=== PATIENT | male | born 1980 | race Caucasian/White ===

== ENCOUNTER 2021-12-23 09:12 | Inpatient (IN) | payer OTHER ==
[~2021-12-23] VITALS: Ht 172.7 cm; Wt 82.0 kg
[2021-12-23 10:52] LABS: BASOPHILS % (AUTO) 0.5 % (0.0-2.0); EOSINOPHILS % (AUTO) 2.3 % (1.0-6.0); HEMATOCRIT 39.6 % (41-53); HEMOGLOBIN 12.5 g/dL (13.5-17.5); LYMPHOCYTES # (AUTO) 2.5 K/uL (1.0-4.8); LYMPHOCYTES % (AUTO) 27.8 % (22.0-44.0); MEAN CORPUSCULAR HEMOGLOBIN 25.4 pg (26.0-34.0); MEAN CORPUSCULAR HGB CONC 31.6 G/dL (31.0-37.0); MEAN CORPUSCULAR VOLUME 81 fL (80-100); MONOCYTES # (AUTO) 0.8 K/uL (0.1-1.0); NEUTROPHILS # (AUTO) 5.4 K/uL (1.8-7.7); NEUTROPHILS % (AUTO) 60.4 % (40.0-70.0); PLATELET COUNT (AUTO) 199 K/uL (150-450); RED BLOOD CELL COUNT(AUTO) 4.91 MIL/uL (4.50-5.90); RED CELL DISTRIBUTION WIDTH 14.8 % (11.5-14.5)
[2021-12-23 11:03] LABS: ANION GAP 8 mmol/L (8-16); CALCIUM, TOTAL 9.3 mg/dL (8.8-10.5); CARBON DIOXIDE 28 mmol/L (22-29); CHLORIDE 105 mmol/L (98-107); CREATININE 0.72 mg/dL (0.60-1.30); GLUCOSE,RANDOM 125 mg/dL (70-110); POTASSIUM 4.1 mmol/L (3.5-5.1); SODIUM SERUM 141 mmol/L (136-145); UREA NITROGEN, BLOOD 14 mg/dL (7-18)
[2021-12-23 11:05] LABS: GLOMERULAR FILTR. RATE CALC > 60 mL/min (>60)
[2021-12-23 11:07] LABS: ALANINE AMINOTRANSFERASE 17 U/L (12-78); ALKALINE PHOSPHATASE 109 U/L (46-116); ASPARTATE AMINOTRANSFERASE 12 U/L (15-37); BILIRUBIN,TOTAL 0.3 mg/dL (0.1-1.0); TOTAL PROTEIN, SERUM 6.9 g/dL (6.4-8.2)
[2021-12-23 11:25] LABS: COVID AG,FIA SOURCE NASAL SWAB
[2021-12-23 11:53] VITALS: BP 130/68
[2021-12-23 16:33] VITALS: BP 127/61
[2021-12-23 19:36] VITALS: BP 154/88
[2021-12-23] MEDS ORDERED: BISACODYL 10 MG RECTAL RECTAL SUPPOSITORY PR PRN (23:00)
[2021-12-23] MEDS ORDERED: ALBUTEROL SULFATE 2.5 MG/0.5 ML NEB SOLUTION NEB PRN (23:00)
[2021-12-23] MEDS ORDERED: ZOLPIDEM TARTRATE 5 MG TABLET PO PRN (23:00)
[2021-12-23] MEDS ORDERED: MAGNESIUM HYDROXIDE SUSPENSION 30 ML UDCUP PO PRN (23:00)
[2021-12-23] MEDS ORDERED: ONDANSETRON HCL 4 MG/2 ML VIAL IVP PRN (23:00)
[2021-12-23] MEDS ORDERED: ACETAMINOPHEN 325 MG TABLET PO PRN (23:00)
[2021-12-23] MEDS ORDERED: IPRATROPIUM BROMIDE 0.5 MG/2.5 ML NEB SOLUTION NEB PRN (23:00)
[2021-12-24 05:15] VITALS: BP 129/74
[2021-12-24 07:43] VITALS: BP 144/90
[2021-12-24] MEDS: HEPARIN SODIUM,PORCINE 5,000 UNITS/ML VIAL SQ SCH ×4 (08:00→23:07)
[2021-12-24] MEDS: PANTOPRAZOLE SODIUM 40 MG DR TABLET PO SCH (08:37)
[2021-12-24 15:53] VITALS: BP 123/63
[2021-12-24] MEDS ORDERED: LORazepam 1 MG TABLET PO SCH (16:00)
[2021-12-24] MEDS ORDERED: LORazepam 1 MG TABLET PO PRN (16:45)
[2021-12-24 20:05] VITALS: BP 130/63
[2021-12-25 04:42] VITALS: BP 142/74
[2021-12-25 07:32] VITALS: BP 136/70
[2021-12-25] MEDS: HEPARIN SODIUM,PORCINE 5,000 UNITS/ML VIAL SQ SCH (08:00)
[2021-12-25] MEDS: PANTOPRAZOLE SODIUM 40 MG DR TABLET PO SCH (08:49)
== END 2021-12-25 13:10 | DRG 885 ==
LOC: EMS 09:15 → 6S 11:28
PROVIDERS: ADMIT Hospitalist; ATTEND Hospitalist
DX: F29 Unspecified psychosis not due to a substance or known physiological condition (principal); F32.9 Major depressive disorder, single episode, unspecified; S31.109A Unspecified open wound of abdominal wall, unspecified quadrant without penetration into peritoneal cavity, initial encounter; Z20.822 Contact with and (suspected) exposure to COVID-19; F41.9 Anxiety disorder, unspecified; X58.XXXA Exposure to other specified factors, initial encounter; Y93.89 Activity, other specified; Y92.89 Other specified places as the place of occurrence of the external cause; Y99.8 Other external cause status
CPT/HCPCS: 80053; 85025; 99285; G0480; J1644

== ENCOUNTER 2021-12-26 18:00 | Inpatient (IN) | payer OTHER ==
[~2021-12-26] VITALS: Ht 180.3 cm; Wt 82.6 kg
[2021-12-26] MEDS ORDERED: DiphenhydrAMINE HCL 50 MG/ML VIAL ONE (18:07)
[2021-12-26] MEDS ORDERED: HALOPERIDOL LACTATE 5 MG/ML VIAL ONE (18:07)
[2021-12-26] MEDS ORDERED: KETAMINE HCL 50 MG/ML 10 ML VIAL ONE (18:17)
[2021-12-26] MEDS ORDERED: MIDAZOLAM HCL 5 MG/ML VIAL IVP ONE (18:30)
[2021-12-26] MEDS ORDERED: MIDAZOLAM HCL 5 MG/ML VIAL IM ONE ×2 (18:30→18:45)
[2021-12-26 18:49] LABS: COVID AG,FIA SOURCE NASOPHARYNGEAL
[2021-12-26 18:52] LABS: BASOPHILS % (AUTO) 0.2 % (0.0-2.0); EOSINOPHILS % (AUTO) 0.2 % (1.0-6.0); HEMATOCRIT 40.2 % (41-53); HEMOGLOBIN 13.8 g/dL (13.5-17.5); LYMPHOCYTES # (AUTO) 0.5 K/uL (1.0-4.8); LYMPHOCYTES % (AUTO) 6.9 % (22.0-44.0); MEAN CORPUSCULAR HEMOGLOBIN 30.4 pg (26.0-34.0); MEAN CORPUSCULAR HGB CONC 34.3 G/dL (31.0-37.0); MEAN CORPUSCULAR VOLUME 89 fL (80-100); MONOCYTES # (AUTO) 0.5 K/uL (0.1-1.0); MONOCYTES % (AUTO) 6.6 % (2.0-9.0); PLATELET COUNT (AUTO) 131 K/uL (150-450); RED BLOOD CELL COUNT(AUTO) 4.53 MIL/uL (4.50-5.90); RED CELL DISTRIBUTION WIDTH 12.5 % (11.5-14.5)
[2021-12-26 18:58] LABS: NEUTROPHILS % (AUTO) 86.1 % (40.0-70.0)
[2021-12-26 19:05] LABS: ANION GAP 12 mmol/L (8-16); CALCIUM, TOTAL 9.5 mg/dL (8.8-10.5); CARBON DIOXIDE 23 mmol/L (22-29); CHLORIDE 103 mmol/L (98-107); CREATININE 1.29 mg/dL (0.60-1.30); GLUCOSE,RANDOM 120 mg/dL (70-110); POTASSIUM 3.1 mmol/L (3.5-5.1); SODIUM SERUM 138 mmol/L (136-145); UREA NITROGEN, BLOOD 23 mg/dL (7-18)
[2021-12-26 19:07] LABS: GLOMERULAR FILTR. RATE CALC > 60 mL/min (>60)
[2021-12-26 19:10] LABS: ALANINE AMINOTRANSFERASE 26 U/L (12-78); ALBUMIN 4.1 g/dL (3.4-5.0); ALKALINE PHOSPHATASE 53 U/L (46-116); ASPARTATE AMINOTRANSFERASE 18 U/L (15-37); BILIRUBIN,TOTAL 1.7 mg/dL (0.1-1.0)
[2021-12-26] MEDS ORDERED: HYDROGEN PEROXIDE 118 ML SOLUTION TP ONE (21:00)
[2021-12-26] MEDS ORDERED: BACITRACIN 0.9 GM PACKET OINTMENT TP ONE (21:00)
[2021-12-26] MEDS ORDERED: LORazepam 2 MG/ML VIAL IVP PRN (21:15)
[2021-12-26] MEDS ORDERED: HALOPERIDOL LACTATE 5 MG/ML VIAL IM PRN (21:15)
[2021-12-26] MEDS ORDERED: POTASSIUM CHL 10 MEQ/WATER 50 ML IV PRN (21:15)
[2021-12-26] MEDS ORDERED: ONDANSETRON HCL 4 MG/2 ML VIAL IVP PRN (21:15)
[2021-12-26] MEDS ORDERED: POTASSIUM CHLORIDE 20 MEQ ER TABLET PO PRN (21:15)
[2021-12-26] MEDS ORDERED: MAGNESIUM HYDROXIDE SUSPENSION 30 ML UDCUP PO PRN (21:15)
[2021-12-26] MEDS ORDERED: ACETAMINOPHEN 325 MG TABLET PO PRN (21:15)
[2021-12-26] MEDS ORDERED: HYDROGEN PEROXIDE 473 ML SOLUTION TP ONE (21:30)
[2021-12-26] MEDS ORDERED: DiphenhydrAMINE HCL 50 MG/ML VIAL IM ONE (22:15)
[2021-12-26] MEDS ORDERED: LORazepam 2 MG/ML VIAL IM ONE (22:15)
[2021-12-26] MEDS ORDERED: HALOPERIDOL LACTATE 5 MG/ML VIAL IM ONE (22:15)
[2021-12-27 03:36] VITALS: BP 126/80
[2021-12-27] MEDS: FAMOTIDINE 20 MG TABLET PO SCH (09:00)
[2021-12-27 11:25] VITALS: BP 130/82
[2021-12-27] MEDS: RisperiDONE 1 MG TABLET PO SCH ×2 (13:30→21:00)
[2021-12-27] MEDS ORDERED: LORazepam 2 MG/ML VIAL IM PRN (13:45)
[2021-12-27 15:22] VITALS: BP 114/70
[2021-12-27 16:45] LABS: AMPHET/METH SCREEN,URINE NEGATIVE (NEGATIVE); BARBITURATE SCREEN, URINE NEGATIVE (NEGATIVE); BENZODIAZEPINES SCREEN,URINE POSITIVE (NEGATIVE); CANNABINOID SCREEN,URINE NEGATIVE (NEGATIVE); COCAINE SCREEN,URINE NEGATIVE (NEGATIVE); METHADONE SCREEN, URINE NEGATIVE (NEGATIVE); OPIATE SCREEN,URINE NEGATIVE (NEGATIVE); PHENCYCLIDINE SCREEN,URINE NEGATIVE (NEGATIVE)
[2021-12-27 20:58] VITALS: BP 119/66
[2021-12-28 03:28] VITALS: BP 122/73
[2021-12-28] MEDS: FAMOTIDINE 20 MG TABLET PO SCH (07:49)
[2021-12-28] MEDS: RisperiDONE 1 MG TABLET PO SCH ×2 (07:50→20:53)
[2021-12-28 08:09] VITALS: BP 119/68
[2021-12-28 15:00] VITALS: BP 124/70
[2021-12-28 19:25] VITALS: BP 126/66
[2021-12-29 04:48] VITALS: BP 119/66
[2021-12-29 07:29] VITALS: BP 118/60
[2021-12-29] MEDS: RisperiDONE 1 MG TABLET PO SCH (07:55)
[2021-12-29] MEDS: FAMOTIDINE 20 MG TABLET PO SCH (08:58)
[2021-12-29] MEDS ORDERED: FAMO20 PO (10:18)
[2021-12-29] MEDS ORDERED: MAGN-169 PO (10:19)
[2021-12-29] MEDS ORDERED: ACET-2247 PO (10:19)
[2021-12-29 15:57] VITALS: BP 124/70
== END 2021-12-29 20:11 | DRG 641 ==
LOC: EMS 18:00 → 6S 23:38
PROVIDERS: ADMIT Internal Medicine; ATTEND Internal Medicine
DX: E87.6 Hypokalemia (principal); F29 Unspecified psychosis not due to a substance or known physiological condition; K59.00 Constipation, unspecified; F41.9 Anxiety disorder, unspecified; T14.8XXA Other injury of unspecified body region, initial encounter; X58.XXXA Exposure to other specified factors, initial encounter; Z20.822 Contact with and (suspected) exposure to COVID-19; Y93.89 Activity, other specified; Y92.89 Other specified places as the place of occurrence of the external cause; Z91.14 Patient's other noncompliance with medication regimen; Y99.8 Other external cause status; Z79.899 Other long term (current) drug therapy
CPT/HCPCS: 70450; 72125; 74176; 80053; 84132; 85025; 99291; G0480; J1200; J1630; J2060; J3490

== ENCOUNTER 2022-06-12 08:51 | Inpatient (IN) | payer OTHER ==
[~2022-06-12] VITALS: Ht 188 cm; Wt 77.3 kg
[~2022-06-12 08:51] MED LIST: ACET-2247 PO; FAMO20 PO; MAGN-169 PO
[2022-06-12] MEDS ORDERED: ACETAMINOPHEN 325 MG TABLET PO PRN (09:45)
[2022-06-12] MEDS ORDERED: ONDANSETRON HCL 4 MG/2 ML VIAL IVP PRN (09:45)
[2022-06-12] MEDS ORDERED: MAGNESIUM HYDROXIDE SUSPENSION 30 ML UDCUP PO PRN (09:45)
[2022-06-12 10:16] LABS: COVID AG,FIA SOURCE NASOPHARYNGEAL
[2022-06-12 11:32] VITALS: BP 114/64
[2022-06-12 15:33] VITALS: BP 114/71
[2022-06-12] MEDS: HEPARIN SODIUM,PORCINE 5,000 UNITS/ML VIAL SQ SCH ×2 (15:58→23:22)
[2022-06-12 20:27] VITALS: BP 123/81
[2022-06-13] MEDS: HEPARIN SODIUM,PORCINE 5,000 UNITS/ML VIAL SQ SCH ×2 (08:00→16:00)
[2022-06-13] MEDS: FAMOTIDINE 20 MG TABLET PO SCH (08:08)
[2022-06-13 16:30] VITALS: BP 124/74
[2022-06-13 19:53] VITALS: BP 125/75
[2022-06-14 04:05] VITALS: BP 110/69
[2022-06-14] MEDS: HEPARIN SODIUM,PORCINE 5,000 UNITS/ML VIAL SQ SCH ×4 (07:54→23:27)
[2022-06-14] MEDS: FAMOTIDINE 20 MG TABLET PO SCH (07:55)
[2022-06-14 08:42] VITALS: BP 105/69
[2022-06-14 19:40] VITALS: BP 133/79
[2022-06-15 04:10] VITALS: BP 117/71
[2022-06-15 07:10] LABS: AMPHET/METH SCREEN,URINE NEGATIVE (NEGATIVE); BARBITURATE SCREEN, URINE NEGATIVE (NEGATIVE); BENZODIAZEPINES SCREEN,URINE NEGATIVE (NEGATIVE); CANNABINOID SCREEN,URINE NEGATIVE (NEGATIVE); COCAINE SCREEN,URINE NEGATIVE (NEGATIVE); METHADONE SCREEN, URINE NEGATIVE (NEGATIVE); OPIATE SCREEN,URINE NEGATIVE (NEGATIVE); PHENCYCLIDINE SCREEN,URINE NEGATIVE (NEGATIVE)
[2022-06-15 07:42] VITALS: BP 113/67
[2022-06-15] MEDS: HEPARIN SODIUM,PORCINE 5,000 UNITS/ML VIAL SQ SCH (08:00)
[2022-06-15] MEDS: FAMOTIDINE 20 MG TABLET PO SCH (08:10)
== END 2022-06-15 13:15 | DRG 885 ==
LOC: EMS 08:54 → 6S 10:33
PROVIDERS: ADMIT Internal Medicine; ATTEND Internal Medicine
DX: F23 Brief psychotic disorder (principal); F94.0 Selective mutism; F29 Unspecified psychosis not due to a substance or known physiological condition; Z20.822 Contact with and (suspected) exposure to COVID-19
CPT/HCPCS: 80307; 99285; J1644